=== PATIENT | female | born 1995 | race Two or more races ===

== ENCOUNTER 2024-02-27 21:53 | Emergency (ER) | payer SELFPAY ==
[~2024-02-27] VITALS: Ht 152.4 cm; Wt 69.0 kg
[2024-02-27 22:22] VITALS: O2SAT 98
[2024-02-28] MEDS ORDERED: LIDO700A15 TP (01:08)
[2024-02-28] MEDS ORDERED: IBUP-2028 MT (01:08)
[2024-02-28] MEDS ORDERED: CYCL5TAB MT (01:09)
[2024-02-28] MEDS: IBUPROFEN 400MG TABLET PO ONE (01:15)
[2024-02-28] MEDS: LIDOCAINE 5% PATCH TOP SCH (01:15)
[2024-02-28 02:18] VITALS: BP 130/79; PULSE 79; RESP 16; TEMP 98
== END 2024-02-28 02:20 | disposition home or self-care (01) ==
LOC: ER 21:53
DX: S39.012A Strain of muscle, fascia and tendon of lower back, initial encounter (principal); S30.1XXA Contusion of abdominal wall, initial encounter; S80.12XA Contusion of left lower leg, initial encounter; S80.11XA Contusion of right lower leg, initial encounter; W18.39XA Other fall on same level, initial encounter; Y93.89 Activity, other specified; Y92.89 Other specified places as the place of occurrence of the external cause; Y99.8 Other external cause status
CPT/HCPCS: 72170; 99283